=== PATIENT | female | born 1995 | race Caucasian/White ===

== ENCOUNTER 2020-05-07 10:09 | Day surgery (SDC) | payer OTHER ==
[~2020-05-07 10:09] MED LIST: DIPRIVAN 200 MG/20 ML IV ONE; Versed 2 MG/2 ML Injection ONE
[2020-05-07] MEDS ORDERED: Lactated Ringers 1,000 ML IV ONE (10:51)
[2020-05-07] MEDS ORDERED: Lactated Ringers 1,000 ML IV SCH (11:00)
[2020-05-07 14:26] VITALS: BP 116/85; PULSE 65; O2SAT 98
--- NOTE | 2020-05-08 10:47 | OP ---
SURGERY DATE: 05/07/2020 SURGERY TIME: PREOPERATIVE DIAGNOSIS: 1. EPIGASTRIC ABDOMINAL PAIN. POSTOPERATIVE DIAGNOSIS: 1. EPIGASTRIC ABDOMINAL PAIN. PROCEDURE: 1. Esophagogastroduodenoscopy. SURGEON: Jani Ribeiro M.D. ANESTHESIA: MAC ESTIMATED BLOOD LOSS: None. SPECIMENS: None. HISTORY OF PRESENT ILLNESS: The patient is a 24 year-old female with history of epigastric abdomen pain. This has been bothersome recently. She is on a proton pump inhibitor daily. This has not improved her symptoms. Per the patient, had a negative abdominal US. The risks of infection, bleeding, and perforation were discussed. She elected to proceed. FINDINGS: Totally normal esophagogastroduodenoscopy. DESCRIPTION OF PROCEDURE: The patient was brought to the endoscopy suite. Time-out was performed. MAC anesthesia was induced and the scope was advanced through the mouth. Cords were normal. The scope advanced to the 3rd portion of the duodenum. It was totally normal. The pylorus and antrum were normal. Scope was retroflexed. There was no hiatal hernia. The rest of the stomach was normal. The scope withdrawn to the gastroesophageal junction. The gastroesophageal junction was normal. The esophagus was normal. Stomach was desufflated. Scope was removed. The rest of the esophagus was normal. FOLLOW-UP: The patient is to follow-up in 2 weeks in the office for further discussion evaluation.
== END 2020-05-07 14:13 | disposition home or self-care (01) ==
LOC: SDC 10:09
PROVIDERS: ATTEND Surgery
DX: R10.13 Epigastric pain (principal)
CPT/HCPCS: 84703; J2250; J2704